=== PATIENT | female | born 1945 | race Asian ===

== ENCOUNTER → 2017-07-16 | Outpatient (CLI) | payer OTHER | LOC: CFH 07:12 | PROVIDERS: ATTEND Internal Medicine Cardiovascular Disease | DX: I35.0 Nonrheumatic aortic (valve) stenosis (principal); I10 Essential (primary) hypertension | CPT/HCPCS: 93306 ==

== ENCOUNTER 2020-08-04 23:54 | Emergency (ER) | payer OTHER ==
[~2020-08-04] VITALS: Ht 149.9 cm; Wt 54.4 kg
[2020-08-05] MEDS ORDERED: LORazepam 1MG TABLET PO ONE (00:30)
[2020-08-05] MEDS ORDERED: LORazepam 1MG TABLET ONE (00:32)
--- NOTE | 2020-08-05 00:42 | NUR ---
PT CAME INTO THE ED THIS AM DUE TO ELEVATED BP, STATES AT HOME HER SYSTOLIC WAS IN THE 200S AND SHE WAS DIZZY AND LIGHT HEADED. UPON ARRIVAL PT BP WAS ELEVATED BUT AT THIS TIME HAS LOWERED TO 140S. PT MEDICATED PER MAR FOR ANXIETY. NAD, AT THE , BED IN [facility], RAILS ENGAGED, WCTM. DENIES DIZZINESS AT THIS TIME
[2020-08-05 01:06] LABS: BASOPHILS % (AUTO) 1 % (0-1); EOSINOPHILS % (AUTO) 5 % (1-7); LYMPHOCYTES % (AUTO) 26 % (22-44); MEAN CORPUSCULAR HEMOGLOBIN 30.3 pg (27.0-34.8); MEAN CORPUSCULAR HGB CONC 33.7 g/dL (32.4-35.8); MEAN PLATELET VOLUME 7.2 fL (7.4-10.4); MONOCYTES % (AUTO) 8 % (2-9); NEUTROPHILS % (AUTO) 60 % (42-75); PLATELET COUNT 280 x10^3/uL (130-400); RED BLOOD COUNT 4.29 x10^6/uL (3.82-5.3)
[2020-08-05 01:19] LABS: ALBUMIN 3.3 g/dL (3.4-5.0); ANION GAP 5 mmol/L (5-15); CALCIUM 8.5 mg/dL (8.5-10.1); CHLORIDE 109 mmol/L (98-107); CREATININE 0.75 mg/dL (0.55-1.02)
[2020-08-05 01:23] LABS: TROPONIN I < 0.015 ng/mL (0.000-0.045)
[2020-08-05 01:42] VITALS: BP 146/79
--- NOTE | 2020-08-05 01:50 | NUR ---
Patient/Spouse given discharge instructions and they have confirmed that they understand the instructions. Patient ambulatory with steady gait. NAD, all questions answered appropriately, denies additional needs at this time. No personal belongings left in room after discharge.
== END 2020-08-05 02:12 | disposition home or self-care (01) ==
LOC: ED 08-05 01:30
DX: I10 Essential (primary) hypertension (principal); F41.1 Generalized anxiety disorder; R07.9 Chest pain, unspecified; J45.909 Unspecified asthma, uncomplicated; R94.31 Abnormal electrocardiogram [ECG] [EKG]
CPT/HCPCS: 36415; 71045; 80048; 82040; 83880; 84484; 85025; 93005; 99285